=== PATIENT | male | born 1965 | race Two or more races ===

== ENCOUNTER 2017-09-20 05:39 | Inpatient (IN) | payer BC ==
[~2017-09-20] VITALS: Ht 170.2 cm; Wt 121.9 kg
[2017-09-20] MEDS ORDERED: METOPROLOL TARTRATE 25 MG TAB PO PRN (06:45)
[2017-09-20] MEDS ORDERED: SODIUM CHLORID 0.9% 500 ML IV PRN (06:45)
[2017-09-20] MEDS ORDERED: POVIDONE IODINE 5% (ANTISEPSIS KIT) 4 APPLICATIONS EACH NARE PRN (06:45)
[2017-09-20] MEDS ORDERED: LACTATED RINGER'S 1000 ML IV PRN (06:45)
[2017-09-20] MEDS ORDERED: CHLORHEXIDINE GLUCONATE 2 % 1 PACK (2 CLOTHS) TOPICAL PRN (06:45)
[2017-09-20] MEDS ORDERED: ASPI-516 PO (07:19)
[2017-09-20] MEDS ORDERED: OMEGCAP PO (07:19)
[2017-09-20] MEDS ORDERED: ATOR10TA15 PO (07:19)
[2017-09-20] MEDS ORDERED: INSU100V2 SQ (07:19)
[2017-09-20] MEDS ORDERED: LANTUS2P SQ (07:20)
[2017-09-20] MEDS ORDERED: SUCR1TAB PO (07:23)
[2017-09-20] MEDS ORDERED: CHOL5000 PO (07:23)
[2017-09-20] MEDS ORDERED: PANT40TA3 PO (07:23)
[2017-09-20] MEDS ORDERED: LOSA25TA PO (07:23)
[2017-09-20] MEDS ORDERED: METF1000 PO (07:23)
[2017-09-20] MEDS ORDERED: ACETAMINOPHEN 1000 MG/100 ML 100 ML IV SCH (07:30)
[2017-09-20] MEDS ORDERED: SCOPOLAMINE 1.5 MG PATCH T-DERMAL SCH (07:30)
[2017-09-20] MEDS ORDERED: APREPITANT 40 MG CAP PO SCH (07:30)
[2017-09-20] MEDS ORDERED: ONDANSETRON HCL 4 MG/2 ML VIAL IV PUSH SCH (07:30)
[2017-09-20] MEDS ORDERED: BUPIVACAINE/EPINEPHRINE 0.25% 50 ML VIAL ONE (10:25)
[2017-09-20] MEDS: ceFAZolin 2 GM PREMIX 50 ML IV SCH ×2 (10:42→12:16)
[2017-09-20] MEDS: METRONIDAZOLE 500 MG/100 ML ISONTONIC SOLN IV SCH ×2 (11:00→12:17)
[2017-09-20] MEDS ORDERED: DO NOT ADM ANY ANTICOAGULANT DRUGS PRN ×2 (11:40→12:47)
[2017-09-20] MEDS ORDERED: ONDANSETRON HCL 4 MG/2 ML VIAL IV ONE (12:00)
[2017-09-20] MEDS ORDERED: GLYCOPYRROLATE 1 MG/5 ML SYRINGE IV PUSH ONE (12:00)
[2017-09-20] MEDS ORDERED: PROPOFOL 200 MG/20 ML AMP IV ONE (12:00)
[2017-09-20] MEDS ORDERED: LIDOCAINE HCL 1% PF 5 ML SYRINGE OTHER ONE (12:00)
[2017-09-20] MEDS ORDERED: LACTATED RINGER'S 1000 ML INJ 1,000 ML IV ONE (12:00)
[2017-09-20] MEDS ORDERED: ROCURONIUM INJ 50 MG/5 ML SYRINGE IV PUSH ONE (12:00)
[2017-09-20] MEDS ORDERED: PHENYLEPH/NS 1000 MCG/10 ML SYR IV ONE (12:00)
[2017-09-20] MEDS ORDERED: DEXAMETHASONE SOD PHOS 4 MG/ML VIAL IV ONE (12:00)
[2017-09-20] MEDS ORDERED: ePHEDrine/NS 25 MG/5 ML SYRINGE IV ONE (12:00)
[2017-09-20] MEDS ORDERED: NEOSTIGMINE 5 MG/5 ML SYRINGE IV PUSH ONE (12:00)
[2017-09-20] MEDS ORDERED: MIDAZOLAM HCL 2 MG/2 ML VIAL ONE (12:47)
[2017-09-20] MEDS: 1/2 NS + KCL 20 MEQ INJ 1,000 ML IV SCH ×2 (12:47→21:27)
[2017-09-20] MEDS ORDERED: *PROMETHAZINE 25 MG/ML VIAL PERIprocedural use ONLY ONE (12:49)
[2017-09-20] MEDS ORDERED: *morphine SULFATE 4 MG/ML PERIprocedure ONLY ONE ×3 (12:49→13:33)
[2017-09-20] MEDS ORDERED: Post-op Orders (for Pharmacy) OTHER ONE (13:00)
[2017-09-20] MEDS ORDERED: NALOXONE HCL 0.4 MG/ML AMP IV PUSH PRN (13:00)
[2017-09-20] MEDS ORDERED: DEXTROSE 50% IN WATER 50 ML VIAL(D50) IV PUSH PRN (13:00)
[2017-09-20] MEDS: METOCLOPRAMIDE HCL 10 MG/2 ML VIAL IV PUSH SCH ×2 (13:00→18:22)
[2017-09-20] MEDS ORDERED: ENALAPRILAT 1.25 MG/ML VIAL IV PUSH PRN (13:00)
[2017-09-20] MEDS ORDERED: diphenhydrAMINE HCL ELIXIR 12.5 MG/5 ML CUP PO PRN (13:00)
[2017-09-20] MEDS ORDERED: ACETAMINOPHEN 325MG/HYDROcodone 7.5MG/15ML UDC PO PRN (13:00)
[2017-09-20] MEDS ORDERED: GLUCAGON 1 MG/ML VIAL OTHER PRN (13:00)
[2017-09-20] MEDS ORDERED: diphenhydrAMINE HCL 50 MG/ML VIAL IV PUSH PRN (13:00)
[2017-09-20] MEDS ORDERED: SODIUM CHLORIDE 0.9% FLUSH 10 ML FLUSH IV FLUSH PRN (13:00)
[2017-09-20 16:00] VITALS: BP 120/56; PULSE 94; RESP 20; TEMP 97.4; O2SAT 95
[2017-09-20] MEDS: RESP: ALBUTEROL 2.5 MG/3 ML NEB (SCH) INH ×2 (16:00→20:00)
[2017-09-20] MEDS: ACETAMINOPHEN 1000 MG/100 ML 100 ML IV SCH (17:35)
[2017-09-20] MEDS: INSULIN NovoLIN REGULAR SUPPLEMENTAL SCALE SQ SCH ×2 (17:36→21:27)
[2017-09-20] MEDS: ENOXAPARIN SODIUM 40 MG/0.4 ML SYRINGE SQ SCH (17:36)
[2017-09-20] MEDS: PCA - TOTAL MG MORPHINE DELIVERED PER SHIFT SCH ×2 (17:41→21:35)
[2017-09-20] MEDS: MORPHINE SULFATE 30 MG/30 ML PCA IV SCH (18:45)
[2017-09-20 20:00] VITALS: BP 125/62; PULSE 81; RESP 18; TEMP 97.7; O2SAT 95
[2017-09-20] MEDS: SODIUM CHLORIDE 0.9% FLUSH 10 ML FLUSH IV FLUSH SCH (21:00)
[2017-09-20] MEDS: metroNIDAZOLE 500 MG INJ 100 ML IV SCH (21:26)
[2017-09-21] VITALS (7 sets, daily range): BP systolic 129–164; BP diastolic 60–78; PULSE 58–64; RESP 18–20; TEMP 96.9–98; O2SAT 95–98
[2017-09-21] MEDS: METOCLOPRAMIDE HCL 10 MG/2 ML VIAL IV PUSH SCH ×2 (01:00→06:35)
[2017-09-21] MEDS: ACETAMINOPHEN 1000 MG/100 ML 100 ML IV SCH ×3 (01:00→12:01)
[2017-09-21] MEDS: RESP: ALBUTEROL 2.5 MG/3 ML NEB (SCH) INH ×6 (03:04→20:28)
[2017-09-21] MEDS: metroNIDAZOLE 500 MG INJ 100 ML IV SCH ×2 (04:33→12:02)
[2017-09-21] MEDS: 1/2 NS + KCL 20 MEQ INJ 1,000 ML IV SCH ×2 (04:34→13:47)
[2017-09-21] MEDS: PCA - TOTAL MG MORPHINE DELIVERED PER SHIFT SCH (06:00)
[2017-09-21] MEDS: MORPHINE SULFATE 30 MG/30 ML PCA IV SCH (06:43)
[2017-09-21 07:28] LABS: AUTOMATED NEUTROPHIL # 8.1 TH/MM3 (1.8-7.7); BASOPHIL % 0.1 % (0.0-2.0); EOSINOPHIL % 0.1 % (0.0-4.0); HEMATOCRIT 38.4 % (39.0-51.0); HEMOGLOBIN 13.3 GM/DL (13.0-17.0); LYMPH % 16.5 % (9.0-44.0); LYMPHOCYTE # 1.7 TH/MM3 (1.0-4.8); MEAN CELL VOLUME 87.7 FL (80.0-100.0); MEAN CORPUSCULAR HEMOGLOBIN 30.4 PG (27.0-34.0); MEAN CORPUSCULAR HGB CONC 34.6 % (32.0-36.0); MEAN PLATELET VOLUME 8.2 FL (7.0-11.0); MONO % 5.5 % (0.0-8.0); MONOCYTE # 0.6 TH/MM3 (0-0.9); NEUT % 77.8 % (16.0-70.0); PLATELET COUNT 342 TH/MM3 (150-450); RED BLOOD COUNT 4.38 MIL/MM3 (4.50-5.90); RED CELL DISTRIBUTION WIDTH 13.9 % (11.6-17.2); WHITE BLOOD COUNT 10.4 TH/MM3 (4.0-11.0)
[2017-09-21 07:49] LABS: BICARBONATE 28.1 MEQ/L (21.0-32.0); CALCIUM 9.1 MG/DL (8.5-10.1); CREATININE 1.2 MG/DL (0.60-1.30)
[2017-09-21] MEDS: INSULIN NovoLIN REGULAR SUPPLEMENTAL SCALE SQ SCH ×5 (08:00→20:23)
[2017-09-21] MEDS: LOSARTAN 25 MG TAB PO SCH (08:14)
[2017-09-21] MEDS: SODIUM CHLORIDE 0.9% FLUSH 10 ML FLUSH IV FLUSH SCH ×2 (08:15→21:00)
[2017-09-21] MEDS: PANTOPRAZOLE SOD 40 MG DELAYED RELEASE TAB PO SCH (08:15)
[2017-09-21] MEDS: ONDANSETRON HCL 4 MG/2 ML VIAL IV PUSH PRN ×2 (08:17→23:31)
--- NOTE | 2017-09-21 11:18 | HHI.PR ---
Subjective Subjective Notes No acute distress Going fair with PO fluids Still has some lingering nausea Objective Vitals/I&O Vital Signs Date Time Temp Pulse Resp B/P (MAP) Pulse Ox O2 Delivery O2 Flow Rate FiO2 09/21/17 08:00 98.0 60 18 146/74 (98) 97 09/20/17 15:15 Nasal Cannula 3 Labs Laboratory Tests Test 09/21/17 06:48 White Blood Count 10.4 Red Blood Count 4.38 Hemoglobin 13.3 Hematocrit 38.4 Mean Corpuscular Volume 87.7 Mean Corpuscular Hemoglobin 30.4 Mean Corpuscular Hemoglobin Concent 34.6 Red Cell Distribution Width 13.9 Platelet Count 342 Mean Platelet Volume 8.2 Neutrophils (%) (Auto) 77.8 Lymphocytes (%) (Auto) 16.5 Monocytes (%) (Auto) 5.5 Eosinophils (%) (Auto) 0.1 Basophils (%) (Auto) 0.1 Neutrophils # (Auto) 8.1 Lymphocytes # (Auto) 1.7 Monocytes # (Auto) 0.6 Eosinophils # (Auto) 0.0 Basophils # (Auto) 0.0 CBC Comment DIFF FINAL Differential Comment Blood Urea Nitrogen 17 Creatinine 1.20 Random Glucose 153 Calcium Level 9.1 Magnesium Level 2.0 Sodium Level 138 Potassium Level 4.5 Chloride Level 103 Carbon Dioxide Level 28.1 Anion Gap 7 Estimat Glomerular Filtration Rate 64 Cardiovascular: Regular Lungs: Clear Abdomen: Post-op tenderness Extremities: Perfused Wound Wound : Wound Location: Abdomen Appearance: Clean & Dry A/P Assessment and Plan 51yo M POD#1 Laparoscopic VSG -D/C [employer], transition to oral pain control -Continue to increase fluids as tolerated -Continue with frequent ambulation Discharge Planning D/C home either later today or tomorrow Akanksha Zhao Sep 21, 2017 11:18
[2017-09-21] MEDS: ACETAMINOPHEN 325MG/HYDROcodone 7.5MG/15ML UDC PO PRN ×3 (12:06→23:26)
[2017-09-21] MEDS ORDERED: METOCLOPRAMIDE HCL 10 MG/2 ML VIAL IV PUSH PRN (13:00)
[2017-09-21] MEDS: ENOXAPARIN SODIUM 40 MG/0.4 ML SYRINGE SQ SCH (17:29)
[2017-09-22] VITALS: BP 159/75; PULSE 64; RESP 20; TEMP 99.8; O2SAT 97
[2017-09-22] MEDS: RESP: ALBUTEROL 2.5 MG/3 ML NEB (SCH) INH ×4 (00:44→11:16)
[2017-09-22 00:46] VITALS: O2SAT 98
[2017-09-22] MEDS: 1/2 NS + KCL 20 MEQ INJ 1,000 ML IV SCH (05:27)
[2017-09-22] MEDS: ONDANSETRON HCL 4 MG/2 ML VIAL IV PUSH PRN ×2 (05:30→12:07)
[2017-09-22] MEDS: ACETAMINOPHEN 325MG/HYDROcodone 7.5MG/15ML UDC PO PRN ×2 (05:31→12:07)
[2017-09-22 08:00] VITALS: BP 168/78; PULSE 59; RESP 16; TEMP 98.2; O2SAT 98
[2017-09-22] MEDS: PANTOPRAZOLE SOD 40 MG DELAYED RELEASE TAB PO SCH (08:31)
[2017-09-22] MEDS: LOSARTAN 25 MG TAB PO SCH (08:31)
[2017-09-22] MEDS: INSULIN NovoLIN REGULAR SUPPLEMENTAL SCALE SQ SCH ×2 (08:32→12:10)
[2017-09-22] MEDS: SODIUM CHLORIDE 0.9% FLUSH 10 ML FLUSH IV FLUSH SCH (08:32)
--- NOTE | 2017-09-22 11:39 | HHI.PR ---
Subjective Subjective Notes Tolerating PO Nausea controlled Objective Vitals/I&O Vital Signs Date Time Temp Pulse Resp B/P (MAP) Pulse Ox O2 Delivery O2 Flow Rate FiO2 09/22/17 08:00 98.2 59 16 168/78 (108) 98 09/20/17 15:15 Nasal Cannula 3 Cardiovascular: Regular Lungs: Clear Abdomen: Post-op tenderness Extremities: No edema Wound Wound : Wound Location: Abdomen Appearance: Clean & Dry A/P Assessment and Plan 51yo M POD#2 Laparoscopic VSG -Continue to increase fluids as tolerated -Continue with frequent ambulation Discharge Planning D/C home today Akanksha Zhao Sep 22, 2017 11:39
[2017-09-22] MEDS ORDERED: METF1000 PO (11:45)
[2017-09-22] MEDS ORDERED: KETO10 PO (11:48)
--- NOTE | 2017-09-30 07:57 | MP ---
cc: DEJUAN BISHOP DATE OF 1965 DATE OF OPERATION 09/20/2017 PREOPERATIVE DIAGNOSIS Morbid obesity with BMI of 42 complicated by type 2 diabetes, essential hypertension, hyperlipidemia. POSTOPERATIVE DIAGNOSES 1. Morbid obesity with BMI of 42 complicated by type 2 diabetes, essential hypertension, hyperlipidemia. 2. Hiatal hernia. PROCEDURE 1. Laparoscopic vertical sleeve gastrectomy over 36-[place] bougie. 2. Laparoscopic hiatal hernia repair. SURGEON Dejuan Bishop MD ANESTHESIA General endotracheal anesthesia. ESTIMATED BLOOD LOSS Scant. FINDINGS Moderate-sized hiatal hernia, fatty liver. Hiatal hernia. SPECIMENS None. COMPLICATIONS None. PROCEDURE IN DETAIL The patient was brought to the operating room and placed on the operating table in supine position, bilateral sequential inflation device placed on lower extremities. General anesthesia was instituted. Antibiotics was initiated. The abdomen was prepped and draped sterilely. A point 15 cm distal to the xiphoid in the midline was anesthetized with 0.25% Marcaine with epinephrine. A skin incision was made, 5-mm OptiView port placed under direct vision and pneumoperitoneum created. Under direct vision, three 5-mm left upper quadrant, a 15-mm right upper quadrant, 5-mm right upper quadrant ports placed. Prior to placement of all ports the skin and peritoneum were anesthetized with 0.25% Marcaine with epinephrine. The patient was placed in reverse Trendelenburg position left side up, the [place]a-Flex retractor was placed. The left lobe of the liver was retracted. The vasculature along the greater curvature of the stomach was using harmonic scalpel starting a distance 5-cm proximal to the pylorus and carried towards the angle of His. The angle of His was taken down bluntly. A moderate-sized hiatal hernia was identified. The left crura of the diaphragm was dissected. The right crura of the diaphragm was dissected. The GE junction was mobilized into the abdominal cavity. The hernia sac was excised. The crura of the diaphragm was approximated with 0 silk suture in a [id number] manner. Posterior ligamentous attachments were sharply . A 36-[place] ViSiGi bougie was placed at the start of the case, was placed on suction. Division of the stomach started 5 cm proximal to the pylorus and carried towards the angle of His to completely excise approximately 80% of the stomach. This was performed using an [place] Flex stapler at the pylorus. The first firing was with a black load, followed by a green load and four gold loads. All staple loads were reinforced with SeamGuard. A distance of 2 cm was left from the angle incisura and the staple line and a distance of 1 cm left from the GE junction and the staple line. The pylorus was then occluded, methylene blue tinged saline was instilled. There was no evidence of extravasation. The gastrocolic ligament was then sutured to the posterior leaflet of the SeamGuard using a 2-0 Vicryl suture in a running manner. Bleeding points were controlled with Evicel. The excised stomach was removed from the peritoneal cavity through the 15-mm port site in an Endopouch. The fascia at the 15-mm port site was approximated with 0 Vicryl suture. The CO2 was then released, all ports were removed, all skin incisions closed with 4-0 Monocryl. The abdominal wall was cleaned. A sterile dressing was placed. The patient was awakened and taken to the recovery room. Dejuan Bishop MD JS/SSB /3:33 PM /7:33 AM
== END 2017-09-22 12:28 | disposition home or self-care (01) | DRG 621 ==
LOC: HSDI 05:39 → EDSTATUS 09:00 → N07B 15:46
PROVIDERS: ADMIT Surgery; ATTEND Surgery
PROC: 0BQT4ZZ Repair Diaphragm, Percutaneous Endoscopic Approach (ICD-10-PCS; 2017-09-20)
PROC: 0DB64Z3 Excision of Stomach, Percutaneous Endoscopic Approach, Vertical (ICD-10-PCS; principal; 2017-09-20 10:42)
DX: E66.01 Morbid (severe) obesity due to excess calories (principal); K76.0 Fatty (change of) liver, not elsewhere classified; I10 Essential (primary) hypertension; E11.9 Type 2 diabetes mellitus without complications; E78.00 Pure hypercholesterolemia, unspecified; M54.9 Dorsalgia, unspecified; K44.9 Diaphragmatic hernia without obstruction or gangrene; G47.30 Sleep apnea, unspecified; Z68.41 Body mass index [BMI] 40.0-44.9, adult; Z79.4 Long term (current) use of insulin
CPT/HCPCS: 80048; 82948; 83735; 85025; 94150; 94640; J0131; J0690; J1100; J1650; J2250; J2270; J2370; J2405; J2550; J2710; J2765; J3010; J7120; J7613; J8501